=== PATIENT | male | born 1960 | race Caucasian/White ===

== ENCOUNTER 2020-02-08 13:13 | Emergency (ER) | payer MEDICAID ==
[~2020-02-08] VITALS: Ht 167.6 cm; Wt 65.8 kg
[2020-02-08] MEDS ORDERED: BLOOD THINNER (13:20)
[2020-02-08] MEDS ORDERED: CHOLESTEROL MED (13:20)
[2020-02-08] MEDS ORDERED: [UNRECOGNIZED DRUG - REMARK] (13:21)
[2020-02-08] MEDS ORDERED: ASA81BEC PO (13:21)
[2020-02-08 13:52] LABS: ABSOLUTE BASOPHILS 0.1 thou/uL (0.0-0.2); ABSOLUTE EOSINOPHILS 0.3 thou/uL (0.0-0.7); ABSOLUTE LYMPHOCYTES 1.5 thou/uL (0.8-5.3); ABSOLUTE MONOCYTES 0.6 thou/uL (0.0-1.2); ABSOLUTE NEUTROPHILS 8.9 thou/uL (1.6-8.1); BASOPHILS 0.9 %; EOSINOPHILS 2.8 %; HEMATOCRIT 43.4 % (42.0-52.0); HEMOGLOBIN 14.7 gm/dL (14.0-18.0); LYMPHOCYTES 12.9 %; MCH 37.4 pg (26.0-34.0); MCHC 33.8 g/dL (28.0-37.0); MCV 110.6 fL (80.0-100.0); MONOCYTES 5.6 %; MPV 7.9 fl. (7.2-11.1); NUCLEATED RBCS 0 /100WBC; PLATELET COUNT* 261 thou/uL (150-400); POLYS 77.8 %; RBC 3.92 mil/uL (4.50-6.00); RDW-CV 18.4 % (10.5-14.5); WBC 11.4 thou/uL (4.0-11.0)
[2020-02-08] MEDS ORDERED: NEURONTIN 300M300 M2 PO (13:55)
[2020-02-08] MEDS ORDERED: PLAVIX 75 MG TA75 MG PO (13:56)
[2020-02-08] MEDS ORDERED: ZESTRIL40 MG PO (13:57)
[2020-02-08 14:02] LABS: CALCIUM 8.7 mg/dL (8.5-10.1); CREATININE 1.2 mg/dL (0.6-1.3); POTASSIUM 4.1 mmol/L (3.5-5.1)
[2020-02-08 14:12] LABS: ALBUMIN 3.4 g/dL (3.4-5.0); TOTAL BILIRUBIN 0.3 mg/dL (<0.1-1.0); TOTAL PROTEIN 8.2 g/dL (6.4-8.2)
[2020-02-08] MEDS ORDERED: KEFLEX500 M1 PO (15:03)
[2020-02-08 15:07] VITALS: BP 111/61
[2020-02-08 16:05] LABS: PLATELET ESTIMATE ADEQUATE
--- NOTE | 2020-02-08 16:18 | EKG ---
[place] [address] ELECTROCARDIOGRAM REPORT Name: DULCE MARTÍNEZ Room: [facility]#: [id number] Admission: 02/08/20 Attend Phys: Discharge: 02/08/20 Date of : 60 Date of Service: 02/08/20 1347 Report #: [id number] THIS REPORT FOR: //name// [facility] ED Test Date: 2020-02-08 Test Time: 13:47:41 Pat Name: DULCE MARTÍNEZ Department: Room: Gender: [employer] Agent: [facility] : 1960 Requested By: Jayjay Lee Order Number: [id number] MD: Byron Vargas Measurements Intervals [place] Rate: 93 P: 81 NE: 153 QRS: 65 QRSD: 81 T: 56 QT: 341 QTc: 425 Interpretive Statements Sinus rhythm Anteroseptal infarct, old possible Baseline wander in lead(s) V5 No previous ECG available for comparison Electronically Signed On 02-08-2020 16:17:37 CDT by Byron Vargas [email or web address] <ELECTRONICALLY SIGNED> By: Byron Vargas MD, [facility] 02/08/20 1617 1347 1347 Byron Vargas MD, [facility] /EPI
== END 2020-02-08 15:07 | disposition home or self-care (01) ==
LOC: M.ERS 13:13
PROVIDERS: Physician Assistant
DX: S90.922A Unspecified superficial injury of left foot, initial encounter (principal); R55 Syncope and collapse; F17.210 Nicotine dependence, cigarettes, uncomplicated; X58.XXXA Exposure to other specified factors, initial encounter; Y93.89 Activity, other specified; Y92.89 Other specified places as the place of occurrence of the external cause; Y99.8 Other external cause status

== ENCOUNTER 2021-07-22 19:07 | Emergency (ER) | payer MEDICAID ==
[~2021-07-22] VITALS: Ht 170.2 cm; Wt 65.8 kg
[~2021-07-22 19:07] MED LIST: ASA81BEC PO; BLOOD THINNER; CHOLESTEROL MED; KEFLEX500 M1 PO; NEURONTIN 300M300 M2 PO; PLAVIX 75 MG TA75 MG PO; ZESTRIL40 MG PO; [UNRECOGNIZED DRUG - REMARK]
[2021-07-22 19:56] LABS: ABSOLUTE EOSINOPHILS 0.2 thou/uL (0.0-0.7); ABSOLUTE MONOCYTES 0.5 thou/uL (0.0-1.2); ABSOLUTE NEUTROPHILS 2.2 thou/uL (1.6-8.1); BASOPHILS 0.8 %; EOSINOPHILS 4.5 %; HEMATOCRIT 33.7 % (42.0-52.0); LYMPHOCYTES 39.7 %; MCHC 32.7 g/dL (28.0-37.0); MCV 94.8 fL (80.0-100.0); MONOCYTES 9.8 %; MPV 7.3 fl. (7.2-11.1); NUCLEATED RBCS 0 /100WBC; PLATELET COUNT* 268 thou/uL (150-400); POLYS 45.2 %; RBC 3.56 mil/uL (4.50-6.00); RDW-CV 21.4 % (10.5-14.5); WBC 4.9 thou/uL (4.0-11.0)
[2021-07-22 20:04] LABS: CALCIUM 8.2 mg/dL (8.5-10.1); CREATININE 1.2 mg/dL (0.6-1.3); POTASSIUM 4.5 mmol/L (3.5-5.1)
[2021-07-22 20:09] LABS: TOTAL BILIRUBIN 0.2 mg/dL (<0.1-1.0); TOTAL PROTEIN 7.5 g/dL (6.4-8.2)
[2021-07-22 20:42] VITALS: BP 106/67
[2021-07-22 21:17] LABS: ANISOCYTOSIS 2+; PLATELET ESTIMATE ADEQUATE
[2021-07-22 21:18] LABS: HYPOCHROMASIA Occasional
== END 2021-07-22 20:43 | disposition home or self-care (01) ==
LOC: M.ERS 19:07
PROVIDERS: Personal Emergency Response Attendant
DX: F10.129 Alcohol abuse with intoxication, unspecified (principal); Z20.822 Contact with and (suspected) exposure to COVID-19; Y90.8 Blood alcohol level of 240 mg/100 ml or more; Z71.1 Person with feared health complaint in whom no diagnosis is made